=== PATIENT | female | born 1980 | race Caucasian/White ===

== ENCOUNTER → 2017-09-05 07:45 | Outpatient (CLI) | payer BC ==
[~2017-09-05 07:45] MED LIST: COZAAR100 MG PO; HYDROCODON-ACE1 EAC7 PO; LEVOTHYROXINE75 MCG PO
[2017-11-10 07:06] VITALS: BMI 27.3
== END | disposition home or self-care (01) ==
LOC: D.NM 07:45
DX: R10.11 Right upper quadrant pain (principal)

== ENCOUNTER 2017-11-10 06:10 | Day surgery (SDC) | payer BC ==
[2017-11-07 09:29] LABS: HEMATOCRIT 35.5 % (36.0-48.0); HEMOGLOBIN 11.7 g/dL (12-16); MCH 28.8 pg (26.0-34.0); MCV 87.4 fL (80.0-100.0); MEAN PLATELET VOLUME 9.6 fL (7.4-10.4); RBC 4.06 10x6/uL (4.00-5.40); RDW 12.7 % (11.5-14.5); WBC 4.2 10x3/uL (4.8-10.8)
[~2017-11-10] VITALS: Ht 165.1 cm; Wt 74.4 kg
[~2017-11-10 06:10] MED LIST changes: -HYDROCODON-ACE1 EAC7 PO
[2017-11-10 07:06] VITALS: BP 170/89; Ht 165.1 cm; Wt 74.4 kg
[2017-11-10 07:17] LABS: HCG URINE NEGATIVE (NEGATIVE)
[2017-11-10] MEDS ORDERED: HYDROCODON-ACE1 EAC7 PO (08:56)
== END 2017-11-10 11:28 | disposition home or self-care (01) ==
LOC: D.OPS 06:10 → D.PAN 08:00 → D.OPS 08:00
PROVIDERS: Anesthesiology; Surgery
DX: K80.80 Other cholelithiasis without obstruction (principal)